=== PATIENT | male | born 1995 | race Caucasian/White ===

== ENCOUNTER 2025-05-05 07:36 | Emergency (ER) | payer OTHER, SELFPAY ==
[2025-05-05 07:47] VITALS: BP 163/96
--- NOTE | 2025-05-05 08:22 | EDRN ---
mechanical manufacturing technician saw order and came over to do a portable xray and just completed xray at stretcher side at this time. Ice applied to L ankle
[2025-05-05 08:42] VITALS: BP 129/94; BMI 41.5
--- NOTE | 2025-05-05 08:45 | EDRN ---
Minerva WEN in room w/pt at this time.
--- NOTE | 2025-05-05 08:52 | ED.MUSCINJ ---
HPI-Injury
General
Chief Complaint: Musculo-Skeletal Complaint
Source: patient
Exam Limitations: none
Time Seen by Provider: 05/05/25 08:35
History of Present Illness-Injury
Initial Injury comments:
29 year old male presents with left ankle pain and swelling starting 3 days ago. He fell down and twisted his ankle. He notes ecchymosis throughout the ankle and foot. He notes increased pain with bearing weight
Past History
Past History
ED Past Medical History: None
ED Past Surgical History: None
Phy Exam
Physical Exam
Physical Exam:
General: Well-appearing male no acute distress
Musculoskeletal exam: Left ankle swollen ecchymotic and tender over the medial and lateral aspect of the ankle the foot itself is nontender
Vascular: DP pulse left foot with good sensation and brisk refill
Injury Course
Orders/Labs/Results
Orders:
Orders
05/05/25 08:09
CR Ankle - Left Min 3 Views Urgent
Comment:
Reason For Exam: pain injury swelling
05/05/25 08:50
Ortho Boot Left- Treatment ONCE
Short or tall?: Tall
MDM/Problems Addressed
Differential Diagnosis Includes:
X-rays left ankle positive for avulsion type fractures of the medial and lateral malleolus. Patient has been ambulatory for [address] an orthopedic boot and advise follow-up with foot and ankle specialist
*Pulse Oximetry
SaO2: 98
Oxygen Mode of Delivery: Room air
Patient hypoxic: no
*Critical Care Note
Total Time (30-74mins, 75-104mins- exclusive of procedures): Not Applicable
ED Attending Note
-
Portions of this chart may have been created with voice recognition software.� Occasional wrong word or��sound alike� substitutions may have occurred due to the inherent limitations of voice recognition software.
Discharge Plan
Departure
Patient Disposition: Home (Routine Discharge)
Date of Disposition: 05/05/25
Time of Disposition: 08:53
Patient with high blood pressure during this ER visit?: No
Discharge Problem:
Avulsion fracture of ankle
Instructions: Muscle and Bone Pain (DC)
Referrals:
Cain Wilson DPM [Active, Podiatry]
Activity Restrictions/Additional Instructions:
Use boot for ambulation. Elevate for swelling. Continue with ibuprofen or Tylenol for pain. Follow-up with orthopedic further evaluation
Interventions
Interventions:
*Risk Screen - Suicide Last Done: 05/05/25 08:42
*General Assessment Last Done: 05/05/25 08:42
*Neglect/Abuse Screening Last Done: 05/05/25 08:42
*ED- Fall Risk Assessment Last Done: 05/05/25 08:42
*ED COVID-19 Vaccine History Last Done: 05/05/25 08:42
ED-Musculoskeletal Assessment Last Done: 05/05/25 08:10
Discharge Date and Time
Print Language: AMHARIC
--- NOTE | 2025-05-05 09:57 | EDRN ---
Pt will be using cane w/ ortho boot.
== END 2025-05-05 10:00 | disposition home or self-care (01) ==
LOC: EMR 07:36
PROVIDERS: EMERGENCY PHYSICIAN Student in an Organized Health Care Education/Training Program; FAMILY PHYSICIAN Family Medicine
DX: M25.572 Pain in left ankle and joints of left foot (principal); S82.892A Other fracture of left lower leg, initial encounter for closed fracture; X50.1XXA Overexertion from prolonged static or awkward postures, initial encounter
CPT/HCPCS: 99283; 73610; 99285

== ENCOUNTER → 2025-08-15 11:31 | Outpatient (REF) | payer OTHER, SELFPAY | LOC: MRI 3T 11:31 | PROVIDERS: ATTENDING PHYSICIAN Student in an Organized Health Care Education/Training Program; FAMILY PHYSICIAN Family Medicine | DX: S93.492A Sprain of other ligament of left ankle, initial encounter (principal); S93.412A Sprain of calcaneofibular ligament of left ankle, initial encounter | CPT/HCPCS: 73721 ==